=== PATIENT | male | born 1990 | race Caucasian/White ===

== ENCOUNTER 2025-02-28 06:52 | Emergency (ER) | payer OTHER, SELFPAY ==
[2025-02-28 07:00] VITALS: BP 133/86; PULSE 73; RESP 16; TEMP 36.9; O2SAT 97; BMI 29.5
--- OUTSIDE RECORDS SUMMARY | 2025-02-28 07:00 | XMS_ITS | Encounter Summary ---
Author Organization [facility] Address [address] [place] [address] Care Team Providers Care Jewel Bearing Turner Name Role Phone Reynaldo Ayers MD Primary Care Provider [phone] Encounter Details Date Type Department Care Team (Late st Contact Info) Description 02/19/2025 External Device Data [facility] ABSTRACTION Provider, Abstract NO ADDRESS ON FILE Social History Tobacco Use Types Packs/Day Years Used Date Smoking Tobacco: Light Smoker Cigarettes 0.5 19.5 Started: 09/08/2005 Cigars Passive Smoke Exposure: Current Smokeless Tobacco: Never Alcohol Use Standard Drinks/Week Comments Yes 6 (1 standard drink = 0.6 oz pur e alcohol) 6 pack every other day Sex and Gender Information Value Date Recorded Sex Assigned at Not on file 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
--- OUTSIDE RECORDS SUMMARY | 2025-02-28 07:00 | XMS_ITS | Encounter Summary ---
Author Organization [facility] Address [address] [place] [address] Care Team Providers Care Scaffolder Name Role Phone Alok Boucher MD Primary Care Provider [phone] Encounter Details Date Type Department Care Team (Latest Contact Info) Description 06/30/2005 Outpatient Historical [facility] Oral and Maxillo Surgery- [address] [place] [id number] Krish Abreu, DDS [address], [place] [phone] UNSPEC DENTAL CARIES (Primary Dx); Tooth eruption disturb Social History Tobacco Use Types Packs/Day Years Used Date Smoking Tobacco: Never Assessed Sex and Gender Information Value Date Recorded Sex Assigned at Not on file 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
--- OUTSIDE RECORDS SUMMARY | 2025-02-28 07:00 | XMS_ITS | Clinical Summary ---
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 Aphasia 06/10/2017 Cigarette nicotine dependence without complicati on 10/28/2016 Preop general physical exam 10/28/2016 Closed fracture of left calcaneus 10/28/2016 Obesity (BMI 30.0-34.9) 10/28/2016 First degree AV block 10/28/2016 Family History Medical History Relation Name Comments Healthy Daughter Hypertension Father Respiratory Disease Father Healthy Mother Colon Cancer Paternal Grandfather Healthy Sister 1 Healthy Sister 2 Healthy Sister 3 Healthy Son Relation Name Status Comments Daughter Alive Father Alive Mother Alive Paternal Grandfather Sister 1 Alive Sister 2 Alive Sister 3 Alive Son Alive Social History Tobacco Use Types Packs/Day Years Used Date Smoking Tobacco: Light Smoker Cigarettes 0.5 8 Smokeless Tobacco: Never Alcohol Use Standard Drinks/Week Comments Yes 0 (1 standard drink = 0.6 oz pur e alcohol) Sex and Gender Information Value Date Recorded Sex Assigned at Not on file 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 Gender Identity Not on file Sexual Orientation Not on file Last Filed Vital Signs Vital Sign Reading Time Taken Comments Blood Pressure 122/80 05/25/2019 8:58 AM NEUROLOGY TECHNICIAN Pulse 65 05/25/2019 8:58 AM NEUROLOGY TECHNICIAN Temperature 36.7 C (98.1 F) 05/25/2019 7:31 AM NEUROLOGY TECHNICIAN Respiratory Rate 17 05/25/2019 8:58 AM NEUROLOGY TECHNICIAN Oxygen Saturation 94% 05/25/2019 8:58 AM NEUROLOGY TECHNICIAN Inhaled Oxygen Concentration - - Weight 83.9 kg (185 lb) 05/17/2019 10:53 AM NEUROLOGY TECHNICIAN Height 175.3 cm (5' 9 ) 05/17/2019 10:53 AM NEUROLOGY TECHNICIAN Body Mass Index 27.32 05/17/2019 10:53 AM NEUROLOGY TECHNICIAN Plan of Treatment Health Maintenance Due Date Last Done Comments DTAP/TDAP/TD VACCINES (1 - Tdap) 2010 HEPATITIS B VACCINES (1 of 3 - 19+ 3-dose series) 12/31 HPV VACCINES (1 - 3-dose SCDM series) 2018 INFLUENZA VACCINE (#1) 2024 Preventative Visit-Managed Medicaid 02/20/202502/19 Medical Devices Implanted Type Area General Medical Practitioner Device Identifier Shelf Expiration Date Model / Serial / Lot Plate Calc Fx Perc Lng Lt Ar-8954yl-L - [id number] Implanted:Qty: 1 on 11/04/2016 by Renan Delgado MD at [facility] Plate Left: Foot [employer] AR-8954YL-L / / [id number] Screw Lp Loc 3.5x32mm Ar-8935l-32 - [id number] Implanted:Qty: 1 on 11/04/2016 by Renan Delgado MD at [facility] Screw Left: Foot [employer] AR-8935L-32 / / [id number] Screw Lp Loc 3.5x34mm Ar-8935l-34 - [id number] Implanted:Qty: 1 on 11/04/2016 by Renan Delgado MD at [facility] Screw Left: Foot [employer] AR-8935L-34 / / [id number] Screw Lp Loc 3.5x30mm Ar-8935l-30 - [id number] Implanted:Qty: 1 on 11/04/2016 by Renan Delgado MD at [facility] Screw Left: Foot [employer] AR-8935L-30 / / [id number] Screw Lp Loc 3.5x38mm Ar-8935l-38 - [id number] Implanted:Qty: 1 on 11/04/2016 by Renan Delgado MD at [facility] Screw Left: Foot [employer] AR-8935L-38 / / [id number] Screw Lp Loc 3.5x34mm Ar-8935l-34 - [id number] Implanted:Qty: 1 on 11/04/2016 by Renan Delgado MD at [facility] Screw Left: Foot [employer] AR-8935L-34 / / [id number] Screw Lp Ti 3.5x32mm Ar-8935-32 - [id number] Implanted:Qty: 1 on 11/04/2016 by Renan Delgado MD at [facility] Screw Left: Foot [employer] AR-8935-32 / / [id number] Screw Lp Ti 3.5x36mm Ar-8935-36 - [id number] Implanted:Qty: 1 on 11/04/2016 by Renan Delgado MD at [facility] Screw Left: Foot [employer] AR-8935-36 / / [id number] Explanted Type Area General Medical Practitioner Device Identifier Shelf Expiration Date Model / Serial / Lot Pin [place] 3/32x9in [id number] - [id number] Implanted:2016 by Renan Delgado MD (Quantity not on file) Explanted:Qty: 1 on 11/04/2016 at [facility] Pin Left: Foot [employer] [facility] 05/01/2022 [id number] / / [id number] Wire [address] Dbl .[id number] Yx-908-26-62 - [id number] Implanted:2016 by Renan Delgado MD (Quantity not on file) Explanted:Qty: 1 on 11/04/2016 at [facility] Wire Left: Foot [facility] KS040-04-07 / / [id number] Wire K Trocar Dbl .[id number] Jy-520-36-62 - [id number] Implanted:2016 by Renan Delgado MD (Quantity not on file) Explanted:Qty: 1 on 11/04/2016 at [facility] Left: Brittney WU [facility] [id number] / / [id number] Insurance [facility] * Guarantor: [email or web address][Om], Corporate Account Type Relation to Patient Date of Phone Billing Address Corporate Employer [phone] (Work) [address] [place] [address] Advance Directives For more information, please contact: [phone] * Full Code (Latest Code Status on File) Date Activated Date Inactivated Comments 05/25/2019 7:36 AM 05/25/2019 11:05 AM * Full Code Date Activated Date Inactivated Comments 06/11/2017 1:50 AM 06/12/2017 2:23 PM * Full Code Date Activated Date Inactivated Comments 11/04/2016 5:02 PM 11/05/2016 11:02 AM * Full Code Date Activated Date Inactivated Comments 11/04/2016 12:53 PM 11/04/2016 5:02 PM * Full Code Date Activated Date Inactivated Comments 11/04/2016 11:52 AM 11/04/2016 12:53 PM Care Teams At Risk Specialist Relationship Specialty Start Date End Date Alok Boucher MD [address], [place] [address] PCP - General Family Practice 06/11/19
--- OUTSIDE RECORDS SUMMARY | 2025-02-28 07:00 | XMS_ITS | Clinical Summary ---
Author Organization [facility] Address [address] El: Epic Prelude ADT JOCELIN SHEEHAN [address] Care Team Providers Care Heating Mechanic Name Role Phone Reynaldo Ayers MD Primary Care Provider [phone] Allergies No known active allergies Medications triamcinolone acetonide (KENALOG) 0.1 % OintmentIndicati ons:Nummular eczema Apply to affected area 2 times daily. 80 Gram 2 3 Active Additional Information Patient not taking.Reported on 11/01/2024 varenicline (CHANTIX) 0.5 mg (11)- 1 mg (42) tablets STARTER dose pack Take as directed on package. 53 Tablet 3 Active Additional Information Patient not taking.Reported on 11/01/2024 budesonide-formo teroL (SYMBICORT) 160-4.5 mcg/actuation HFA Aerosol Inhaler Take 2 Puffs by inhalation 2 times daily. 1 Gram 2 3 Active Additional Information Patient not taking.Reported on 11/01/2024 atorvastatin (LIPITOR) 10 mg tablet Take 1 Tablet (10 mg) by mouth daily. 100 Tablet 3 3 Active Additional Information Patient not taking.Reported on 11/01/2024 buPROPion HCL (Wellbutrin SR) 100 mg Sustained Release 12 hour tabletIndication s:Encounter for smoking cessation counseling Take 1 tab daily for 1 week then increase to BID. 60 Tablet 2 4 Active Additional Information Patient not taking.Reported on 11/01/2024 albuterol sulfate HFA 90 mcg/actuation aerosol inhalerIndicatio ns:Chronic cough,Moderate persistent reactive airway disease without complication TAKE 2 PUFFS BY INHALATION EVERY 6 HOURS NEEDED FOR SHORTNESS OF BREATH. 8.5 Gram 1 5 Active Additional Information Patient not taking.Reported on 11/01/2024 clotrimazole-bet amethasone (LOTRISONE) 1-0.05 % CreamIndications :Tinea pedis of both feet Apply to affected area 2 times daily. 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 Influenza A 06/10/2017 Chronic hepatitis C without hepatic coma 018 Aphasia 06/10/2017 Chronic hepatitis B without hepatic coma 018 Cigarette nicotine dependence without complicati on 10/28/2016 Preop general physical exam 10/28/2016 Closed fracture of left calcaneus 10/28/2016 Obesity (BMI 30.0-34.9) 10/28/2016 First degree AV block 10/28/2016 Encounters Date Type Department Care Team Description 02/19/2025 External Device Data [facility] ABSTRACTION Provider, Abstract 01/15/2025 External Device Data [facility] ABSTRACTION Provider, Abstract 12/19/2024 External Device Data [facility] ABSTRACTION Provider, Abstract 12/18/2024 External Device Data [facility] ABSTRACTION Provider, Abstract 12/04/2024 External Device Data [facility] ABSTRACTION Provider, Abstract from Last 3 Months Family History Medical History Relation Name Comments [...] Passive Smoke Exposure: Current Smokeless Tobacco: Never Tobacco Cessation:Ready to Q uit: Not Asked; Counseling Given: Not Answered Alcohol Use Standard Drinks/Week Comments Yes 6 (1 standard drink = 0.6 oz pur e alcohol) 6 pack every other day Sex and Gender Information Value Date Recorded Sex Assigned at Not on file 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 Gender Identity Not on file Sexual Orientation Not on file Last Filed Vital Signs Vital Sign Reading Time Taken Comments Blood Pressure 122/62 11/01/2024 10:28 AM CDT Pulse 91 11/01/2024 10:28 AM CDT Temperature 36.9 C (98.5 F) 11/01/2024 10:28 AM CDT Respiratory Rate 16 11/01/2024 10:28 AM CDT Oxygen Saturation 95% 11/01/2024 10:28 AM CDT Inhaled Oxygen Concentration - - Weight 89.4 kg (197 lb) 11/01/2024 10:28 AM CDT Height 175.3 cm (5' 9 ) 11/01/2024 10:28 AM CDT Body Mass Index 29.09 11/01/2024 10:28 AM CDT Plan of Treatment Health Maintenance Due Date Last Done Comments DTAP/TDAP/TD VACCINES (1 - Tdap) 2010 HEPATITIS B VACCINES (1 of 3 - 19+ 3-dose series) 12/31 HPV VACCINES (1 - 3-dose SCDM series) 2018 Preventative Visit- Commercial 05/02/2024 02/20/2024 INFLUENZA VACCINE (#1) 2024 Abdominal Aortic Aneurysm (AAA) Screening Completed 05/18/2019 Medical Devices Implanted Type Area Rotary Cutter Device Identifier Shelf Expiration Date Model / Serial / Lot Plate Calc Fx Perc Lng Lt Ar-8954yl-L - [id number] Implanted:Qty: 1 on 11/04/2016 by Renan Delgado MD Plate Left: Foot [employer] AR-8954YL-L / / [id number] Screw Lp Loc 3.5x30mm Ar-8935l-30 - [id number] Implanted:Qty: 1 on 11/04/2016 by Renan Delgado MD Screw Left: Foot [employer] AR-8935L-30 / / [id number] Screw Lp Loc 3.5x32mm Ar-8935l-32 - [id number] Implanted:Qty: 1 on 11/04/2016 by Renan Delgado MD Screw Left: Foot [employer] AR-8935L-32 / / [id number] Screw Lp Loc 3.5x34mm Ar-8935l-34 - [id number] Implanted:Qty: 1 on 11/04/2016 by Renan Delgado MD Screw Left: Foot [employer] AR-8935L-34 / / [id number] Screw Lp Loc 3.5x34mm Oh-8935l-34 - [id number] Implanted:Qty: 1 on 11/04/2016 by Renan Delgado MD Screw Left: Foot [employer] AR-8935L-34 / / [id number] Screw Lp Loc 3.5x38mm Ar-8935l-38 - [id number] Implanted:Qty: 1 on 11/04/2016 by Renan Delgado MD Screw Left: Foot [employer] AR-8935L-38 / / [id number] Screw Lp Ti 3.5x32mm Oh-8935-32 - [id number] Implanted:Qty: 1 on 11/04/2016 by Renan Delgado MD Screw Left: Foot [employer] AR-8935-32 / / [id number] Screw Lp Ti 3.5x36mm Oh-8935-36 - [id number] Implanted:Qty: 1 on 11/04/2016 by Renan Delgado MD Screw Left: Foot [employer] AR-8935-36 / / [id number] Explanted Type Area Rotary Cutter Device Identifier Shelf Expiration Date Model / Serial / Lot Pin [place] 3/32x9in [id number] - [id number] Implanted:11/04 by Renan Delgado MD (Quantity not on file) Explanted:Qty: 1 on 11/04/2016 Pin Left: Foot [facility] 05/01/2022 KM168- 29-33 / / [id number] Wire K Trocar Dbl .[id number] Rv-221-06-62 - [id number] Implanted:11/04 by Renan Delgado MD (Quantity not on file) Explanted:Qty: 1 on 11/04/2016 Wire Left: Foot [facility] KM172- 29-62 / / [id number] Wire K Trocar Dbl .[id number]-277-82-62 - [id number] Implanted:11/04 by Renan Delgado MD (Quantity not on file) Explanted:Qty: 1 on 11/04/2016 Wire Left: Foot [place] [address]- 29-62 / / [id number] Procedures Procedure Name Priority Date/Time Associated Diagnosis Comments US ABDOMEN COMPLETE Routine 05/18/2019 3 :58 PM SUPERVISOR HOME ENERGY CONSULTANT Non-intractable vomiting with nausea, unspecified vomiting type from Last 3 Months or Most Recently Relevant to Health Maintenance Results * US ABDOMEN COMPLETE (05/18/2019 3:58 PM SUPERVISOR HOME ENERGY CONSULTANT) Anatomical Region Laterality Modality Abdomen Other Impressions 05/20/2019 11:56 AM SUPERVISOR HOME ENERGY CONSULTANT Please see below. US ABDOMEN COMPLETE, 05/18/2019 3:58 PM. REASON FOR EXAM: See Diagnosis. DIAGNOSIS: Non-intractable vomiting with nausea, unspecified vomiting type. COMPARISON: None. TECHNIQUE: Multiplanar real-time ultrasonography of the abdomen using lambert-scale imaging, supplemented by color and spectral Doppler as needed. FINDINGS: * Liver: Normal size, contour, and echo texture without focal lesions. * Gallbladder: Normal. No stones, wall thickening or pericholecystic fluid collections. No sonographic Alanis's sign. * Biliary: No intra- or extra-hepatic ductal dilatation. Common bile duct measures 2.4 mm. * Spleen: Normal size, contour, and echo texture without focal lesions. Maximal dimension = 9.8 cm. * Pancreas: Incompletely visualized; unremarkable * Kidneys: No perinephric fluid, or hydronephrosis. No focal masses are identified. Right kidney measures 11.0 cm. Left kidney measures 10.1 cm. * Peritoneum: No ascites. * Imaged Aorta/IVC: The visualized aorta and IVC are within normal limits. ++++++++++++++++++++ IMPRESSION: Normal abdominal ultrasound. Narrative Procedure Note Bautista Dumont MD - 09/20/2020 IMPRESSION Please see below. US ABDOMEN COMPLETE, 05/18/2019 3:58 PM. REASON FOR EXAM: See Diagnosis. DIAGNOSIS: Non-intractable vomiting with nausea, unspecified vomiting type. COMPARISON: None. TECHNIQUE: Multiplanar real-time ultrasonography of the abdomen using lambert-scale imaging, supplemented by color and spectral Doppler as needed. FINDINGS: * Liver: Normal size, contour, and echo texture without focal lesions. * Gallbladder: Normal. No stones, wall thickening or pericholecystic fluid collections. No sonographic Alanis's sign. * Biliary: No intra- or extra-hepatic ductal dilatation. Common bile duct measures 2.4 mm. * Spleen: Normal size, contour, and echo texture without focal lesions. Maximal dimension = 9.8 cm. * Pancreas: Incompletely visualized; unremarkable * Kidneys: No perinephric fluid, or hydronephrosis. No focal masses are identified. Right kidney measures 11.0 cm. Left kidney measures 10.1 cm. * Peritoneum: No ascites. * Imaged Aorta/IVC: The visualized aorta and IVC are within normal limits. ++++++++++++++++++++ IMPRESSION: Normal abdominal ultrasound. us Roland Torres DO US ORDERABLES Final R esult from Last 3 Months or Most Recently Relevant to Health Maintenance Insurance [employer] EXCHANGE [id number] [address] [id number] Care Teams Heating Mechanic Relationship Specialty Start Date End Date Reynaldo Ayers MD [address] [place] [phone] PCP - General Family Practice 10/31/24
--- NOTE | 2025-02-28 07:04 | ED_ITS ---
HPI - Neck Pain/Injury General: Chief Complaint: Neck Pain/Injury Stated Complaint: Headache,pain radiating down neck to both elbows Time Seen by Provider: 02/28/25 07:01 History of Present Illness: 35-year-old male presents emergency with complaints of neck pain. He has had problems in the past with this as well no precipitating events. He is complaining of little bit of a headache and the occipital region as well he intermittently gets pain that will radiate down into his arms no history of trauma no recent injury. Some pain in his arms but no weakness. Related Data Previous Rx's ?Medication ?Instructions ?Recorded diclofenac sodium 75 mg 75 mg PO Q12H PRN pain #20 t abs 02/28/25 tablet,delayed release hydrocodone 5 mg-acetaminophen 325 1 tab PO Q6H PRN pa in #10 tabs 02/28/25 mg tablet prednisone 20 mg tablet 20 mg PO TID #15 tabs tizanidine 4 mg tablet 4 mg PO Q6H PRN muscle spast icity 02/28/25 #20 tabs Allergies Allergy/AdvReac Type Severity Reaction Status Date / Time No Known Allergies Allergy Verified 02/28/25 07:03 Review of Systems Const: Denies: fever(s) or chills Card: Denies: chest pain Resp: Denies: dyspnea GI: Denies: abdominal pain : Denies: dysuria, urinary frequency or urinary urgency Musc: Reports: neck pain; Denies: back pain Skin/Breast: Denies: rash Physical Exam Const: GENERAL APPEARANCE: cooperative ORIENTATION/CONSCIOUSNESS: Yes awake, Yes oriented to person, Yes oriented to place and Yes oriented to time HENMT: COMMON NORMALS: normocephalic, atraumatic and hearing grossly normal bilaterally HEAD & SCALP: normocephalic and atraumatic Neck/C-Spine: OTHER: Limited range of motion of the neck due to discomfort. No swelling no redness no erythema. Resp: COMMON NORMALS: normal respiratory effort, No retractions, No use of accessory muscles and clear to auscultation bilaterally AUSCULTATION: clear to auscultation bilaterally Cardio: COMMON NORMALS: regular rate, regular rhythm and No murmurs present (Cardio) RATE: regular rate RHYTHM: regular rhythm Extremity: COMMON NORMALS: normal to inspection, capillary refill normal, no clubbing, cyanosis or edema, no calf tenderness and no pedal edema OTHER: Neurovascularly upper extremities intact strength normal sensation normal Neuro: SENSORIUM/ORIENTATION: Yes oriented to person, Yes oriented to place and Yes oriented to time Skin: COMMON NORMALS: no rashes or lesions noted GENERAL SKIN EXAM: no rashes or lesions noted Course Vital Signs: Vital signs: Vital Signs Temperature 98.4 F 02/28/25 07:00 Pulse Rate 77 02/28/25 10:11 Respiratory Rate 18 02/28/25 09:07 Blood Pressure 117/75 02/28/25 10:11 Pulse Oximetry 96 02/28/25 10:11 Oxygen Delivery Me thod Room Air 02/28/25 08:32 MDM - Neck Pain/Injury Medical Decision Making Patient has prominent cervical radiculopathy. He has no red flag symptoms his symptoms are improved with medications given. Will discharge home with pain medications steroid taper anti-inflammatories follow-up with primary care if he is worsening symptoms return to the emergency room. May need referral to PT or possibly MRI. Medical Records I reviewed the patient's medical records. Lab Data I reviewed the patient's lab results. No radiology studies performed this visit Discharge Plan Discharge Patient Disposition: Home Clinical Impression: Cervical radiculopathy Condition: Stable Prescriptions: New tizanidine 4 mg tablet 4 mg PO Q6H PRN (Reason: muscle spasticity) Qty: 20 0RF Rx Instructions: do not exceed 3 doses per 24 hrs hydrocodone-acetaminophen 5-325 mg tablet 1 tab PO Q6H PRN (Reason: pain) Qty: 10 0RF prednisone 20 mg tablet 20 mg PO TID Qty: 15 0RF Rx Instructions: 1 p.o. 3 times daily x3 days, 1 p.o. twice daily x2 days, 1 p.o. daily x2 days diclofenac sodium 75 mg tablet,delayed release (DR/EC) 75 mg PO Q12H PRN (Reason: pain) Qty: 20 0RF Discharge Orders: Discharge ED (Routine); Ordered 02/28/25 Ordered By: Seb Beniot Referrals: Reynaldo Ayers MD [Primary Care Provider, Family Practice] Discharge Diet: Usual diet Discharge Activity: Limit activity as instructed Patient Instructions: Opioid Safety, Pain Management, Patient Portal & Alana Instructions Activity Restrictions/Additional Instructions: Thank you for choosing [facility] for your healthcare needs today. It is very important that you follow up as instructed or that you return to the Emergency Department should you have concerns or if your condition changes or worsens in any way. Emergency department visits are focused on emergent conditions, in some cases you may require further evaluation on an outpatient basis. You were seen in the emergency room with complaints of neck pain. Since there was no trauma no red flag symptoms we did not do any imaging. I do recommend that you follow-up with your primary care doctor you may need referral to PT or if the symptoms persist or worsen you may need advanced imaging possibly including an MRI. You are discharged home with a steroid taper pain management medications and muscle relaxers to use as needed. Follow-up with your primary care doctor return if you have further problems. (Please note that included in your discharge packet is information concerning opioid safety and pain management. This information is given to all patients were discharged from the ER regardless of their discharge diagnosis or the medicines they usually take or are prescribed.) Print Language: Frisian Coding Level of Care Code ED Area Operations Manager for Carolyn Shelton
[2025-02-28] MEDS: methylPREDNISolone sod succ 125 mg/2 mL INJ IV (07:30)
[2025-02-28] MEDS: orphenadrine 30 mg/mL Inj 2 mL 60 MG IV (07:31)
[2025-02-28 08:05] VITALS: RESP 18; O2SAT 97
[2025-02-28] MEDS: morphine 4 mg/mL SDV 1 mL IVP (08:05)
[2025-02-28 08:32] VITALS: BP 113/78; PULSE 72; O2SAT 95
[2025-02-28 09:07] VITALS: RESP 18; O2SAT 96
[2025-02-28] MEDS: morphine 4 mg/mL SDV 1 mL 2 MG IVP (09:07)
[2025-02-28 10:11] VITALS: BP 117/75; PULSE 77; O2SAT 96
== END 2025-02-28 10:32 | disposition home or self-care (01) ==
PROVIDERS: Emergency Provider Family Medicine; PCP Family Medicine
DX: M54.12 Radiculopathy, cervical region (principal)
CPT/HCPCS: 96374; 96375; 96376; 99284; J1885; J2270; J2360; J2919